=== PATIENT | male | born 1995 | race Two or more races ===

== ENCOUNTER 2016-08-11 12:57 | Emergency (ER) | payer SELFPAY ==
[2016-08-11 13:28] VITALS: TEMP 98.7
--- NOTE | 2016-08-11 13:47 | ED PDOC ---
HPI: Psych/Substance Abuse Time Seen by Provider: 08/11/16 13:07 Chief Complaint (Nursing): Substance Abuse Chief Complaint (Provider): Sweating History Per: Patient, Other (police) History/Exam Limitations: no limitations Onset/Duration Of Symptoms: Days (Today) Additional Complaint(s): Pt. was found using another person's credit card. Pt. found in a car by police and was under arrest. Has marijuana and had multiple layers of clothing. Was sweating, weak, nauseated so brought to the ED. Pt. states his stomach feels hot. No abd pain, weakness, headaches, back pain, chest pain, dyspnea, diarrhea , nausea, vomit. States no headaches or dizziness. Denies drugs or etoh. Past Medical History Reviewed: Nursing Documentation, Vital Signs Vital Signs: Last Vital Signs Temp 98.7 F 08/11/16 13:27 Pulse 63 08/11/16 13:27 Resp 16 08/11/16 13:27 BP 150/80 08/11/16 13:27 Pulse Ox 94 L 08/11/16 13:27 - Medical History PMH: No Chronic Diseases - Surgical History Surgical History: No Surg Hx - Family History Family History: States: Unknown Family Hx - Social History Current smoker - smoking cessation education provided: No Alcohol: None Drugs: Cannabis - Allergies Allergies/Adverse Reactions: Allergies Allergy/AdvReac Type Severity Reaction Status Date / Time No Known Allergies Allergy Verified 08/11/16 13:07 Review of Systems ROS Statement: Except As Marked, All Systems Reviewed And Found Negative Physical Exam - Reviewed Nursing Documentation Reviewed: Yes Vital Signs Reviewed: Yes - Physical Exam Appears: Positive for: Non-toxic, No Acute Distress Head Exam: Positive for: ATRAUMATIC, NORMAL INSPECTION, NORMOCEPHALIC Skin: Positive for: Normal Color, Warm, DRY Eye Exam: Positive for: EOMI, Normal appearance, PERRL ENT: Positive for: Normal ENT Inspection Neck: Positive for: Normal, Painless ROM Cardiovascular/Chest: Positive for: Regular Rate, Rhythm Respiratory: Positive for: CNT, Normal Breath Sounds Gastrointestinal/Abdominal: Positive for: Normal Exam, Bowel Sounds, Soft. Negative for: Tenderness Back: Positive for: Normal Inspection. Negative for: L CVA Tenderness, R CVA Tenderness Extremity: Positive for: Normal ROM. Negative for: Tenderness, Pedal Edema Neurologic/Psych: Positive for: Alert, money room supervisor II-XII, Oriented. Negative for: Motor/Sensory Deficits - Laboratory Results Result Diagrams: 08/11/16 14:06 08/11/16 14:06 Interpretation Of Abn Labs: pollo - ECG O2 Sat by Pulse Oximetry: 94 - Progress ED Course And Treament: 1629: Stable. AAOx3. Pain free. Tolerated PO. Ambulated with no issues. Fu with pcp. Disposition - Clinical Impression Clinical Impression: Drug abuse - Patient ED Disposition Is Patient to be Admitted: No Counseled Patient/Family Regarding: Studies Performed, Diagnosis, Need For Followup - Disposition Referrals: [facility] [Outside] - 08/12/16 Disposition: Routine/Home Disposition Time: 16:30 Condition: STABLE Additional Instructions: Return if not better in 3 days. Patient is medically cleared for incarceration. Instructions: Cannabis Abuse (ED)
[2016-08-11] MEDS ORDERED: Sodium Chloride 0.9% 1,000 ML IV STA (13:48)
[2016-08-11 14:18] LABS: BASO % 0.4 % (0.0-2.0); EOS # 0.1 K/uL (0.0-0.7); EOS % 0.5 % (0.0-4.0); HEMATOCRIT 42.7 % (35.0-51.0); LYMPH # 1.5 K/uL (1.0-4.3); LYMPH % 12.4 % (20.0-40.0); MEAN CELL VOLUME 83.9 fl (80.0-94.0); MEAN CORPUSCULAR HEMOGLOBIN 27.5 pg (27.0-31.0); MEAN CORPUSCULAR HGB CONC 32.7 g/dL (33.0-37.0); MONO # 0.7 K/uL (0.0-0.8); NEUT # 9.4 K/uL (1.8-7.0); NEUT % 80.7 % (50.0-75.0); RED CELL DISTRIBUTION WIDTH 13.6 % (11.5-14.5); WHITE BLOOD COUNT 11.7 K/uL (4.8-10.8)
[2016-08-11 14:31] LABS: ALB/GLOB RATIO 1.6 (1.0-2.1); ALCOHOL SERUM < 10 mg/dl (0-10); ALKALINE PHOSPHATASE 55 U/L (38-126); ALT/SGPT 12 U/L (21-72); AST/SGOT 22 U/L (17-59); BILIRUBIN,TOTAL 1.5 mg/dl (0.2-1.3); BLOOD UREA NITROGEN 12 mg/dl (9-20); CALCIUM 9.6 mg/dL (8.4-10.2); CARBON DIOXIDE 25 mmol/L (22-30); CHLORIDE 103 mmol/L (98-107); GFR AFRICAN-AMERICAN > 60; GLUCOSE,RANDOM 94 mg/dL (75-110); LIPASE 84 U/L (23-300); POTASSIUM 3.5 MMOL/L (3.6-5.0); SODIUM 144 mmol/l (132-148); TOTAL PROTEIN 7.4 G/DL (6.3-8.2)
[2016-08-11 18:56] VITALS: BP 124/68; PULSE 68; RESP 18; O2SAT 99
== END 2016-08-11 17:05 ==
LOC: H.ER 12:57
DX: F19.10 Other psychoactive substance abuse, uncomplicated (principal); R11.0 Nausea
CPT/HCPCS: 80053; 83690; 85025; 99283; G0480; J2405; J7040